=== PATIENT | female | born 1995 | race Hispanic/Latino ===

== ENCOUNTER 2019-07-22 19:09 | Emergency (ER) | payer MEDICAID ==
[2019-07-22 19:52] LABS: BASOPHILS % (AUTO) 0.4 % (0.0-5.0); EOSINOPHILS % (AUTO) 1.1 % (0.0-8.0); HEMATOCRIT 37.1 % (36-48); LYMPHOCYTES % (AUTO) 31.5 % (21.0-51.0); MEAN CORPUSCULAR HEMOGLOBIN 28.7 pg (27.0-33.0); MEAN CORPUSCULAR HGB CONC 33.4 g/dL (32.0-36.0); MEAN CORPUSCULAR VOLUME 85.9 fL (79-99); NEUTROPHILS % (AUTO) 59.6 % (40.0-77.0); PLATELET COUNT (AUTO) 253 K/uL (130-400); RED BLOOD CELL COUNT(AUTO) 4.32 MIL/uL (4.00-5.50); RED CELL DISTRIBUTION WIDTH 11.9 % (11.0-15.5); WHITE BLOOD COUNT (AUTO) 8.5 K/uL (4.8-10.8)
[2019-07-22 20:05] LABS: CREATININE 0.6 mg/dL (0.5-1.5); POTASSIUM 3.5 mmol/L (3.5-5.1)
[2019-07-22 20:17] LABS: ALBUMIN 3.4 g/dL (3.5-5.0); BILIRUBIN,TOTAL 0.4 mg/dL (0.2-1.0); TOTAL PROTEIN, SERUM 7.8 g/dL (6.0-8.3)
[2019-07-22 20:59] LABS: APPEARANCE,URINE Clear (CLEAR); BILIRUBIN,URINE Negative (NEGATIVE); COLOR,URINE Yellow (YELLOW); GLUCOSE, URINE (UA) Negative (NEGATIVE); KETONES,URINE Trace mg/dL (NEGATIVE); LEUKOCYTE ESTERASE ,URINE Trace (NEGATIVE); NITRATE,URINE Negative (NEGATIVE); OCCULT BLOOD,URINE Moderate (NEGATIVE); PH,URINE 5.5 (5.0-8.0); PROTEIN,URINE Negative (NEGATIVE)
[2019-07-22 21:28] LABS: BACTERIA,URINE Few /HPF (None Seen); CALCIUM OXALATE CRYSTALS,UR Moderate /LPF (None Seen); MUCUS,URINE Few LPF (None Seen); SQUAMOUS EPITHELIAL CELL,UR 0-2 /HPF (0-2)
[2019-07-22] MEDS ORDERED: ACETAMINOPHEN 325 MG TAB ONE (21:37)
== END 2019-07-22 21:44 | disposition home or self-care (01) ==
LOC: EDH 19:09
DX: O26.891 Other specified pregnancy related conditions, first trimester (principal); R10.12 Left upper quadrant pain; Z3A.10 10 weeks gestation of pregnancy
CPT/HCPCS: 36415; 76801; 80053; 81001; 83690; 85025

== ENCOUNTER 2020-02-03 06:01 | Inpatient (IN) | payer MEDICAID ==
[~2020-02-03] VITALS: Ht 160 cm; Wt 96.2 kg
[2020-02-03] MEDS ORDERED: LACTATED RINGERS 1000ML 1,000 ML IV PRN (06:20)
[2020-02-03] MEDS ORDERED: NALOXONE HCL 0.4 MG/1 ML ML IV PRN (06:30)
[2020-02-03] MEDS ORDERED: LACTATED RINGERS 500 ML 500 ML IV PRN (06:30)
[2020-02-03] MEDS ORDERED: OXYTOCIN 10 USP UNITS/ML 20 UNIT in LACTATED RINGERS 1000ML 1,000 ML IV SCH (06:30)
[2020-02-03] MEDS ORDERED: EPHEDRINE SULFATE 50 MG/ML AMPULE IVP PRN (06:30)
[2020-02-03] MEDS ORDERED: ROPIVACAINE 0.2% 100ML VIAL 100 ML EP SCH (06:30)
[2020-02-03 07:12] LABS: APPEARANCE,URINE Cloudy (CLEAR); BILIRUBIN,URINE Negative (NEGATIVE); COLOR,URINE Yellow (YELLOW); GLUCOSE, URINE (UA) Negative (NEGATIVE); KETONES,URINE Negative (NEGATIVE); LEUKOCYTE ESTERASE ,URINE Moderate (NEGATIVE); NITRATE,URINE Negative (NEGATIVE); OCCULT BLOOD,URINE Negative (NEGATIVE); PH,URINE 6.5 (5.0-8.0); PROTEIN,URINE POS 1+ mg/dL (NEGATIVE)
[2020-02-03] MEDS ORDERED: OXYTOCIN-LR 20 UNITS/1000 ML 1,000 ML IV ONE (07:12)
[2020-02-03 07:16] LABS: MEAN CORPUSCULAR HEMOGLOBIN 28.3 pg (27.0-33.0); MEAN CORPUSCULAR HGB CONC 32.7 g/dL (32.0-36.0); MEAN CORPUSCULAR VOLUME 86.4 fL (79-99); RED BLOOD CELL COUNT(AUTO) 4.28 MIL/uL (4.00-5.50); RED CELL DISTRIBUTION WIDTH 13.8 % (11.0-15.5); WHITE BLOOD COUNT (AUTO) 8.8 K/uL (4.8-10.8)
[2020-02-03] MEDS ORDERED: OXYTOCIN-LR 20 UNITS/1000 ML 1,000 ML IV SCH ×2 (07:45→13:00)
[2020-02-03 07:56] LABS: AMPHET/METH SCREEN,URINE NEGATIVE (NEGATIVE); BARBITURATE SCREEN, URINE NEGATIVE (NEGATIVE); BENZODIAZEPINES SCREEN,URINE NEGATIVE (NEGATIVE); CANNABINOID SCREEN,URINE NEGATIVE (NEGATIVE); COCAINE SCREEN,URINE NEGATIVE (NEGATIVE); OPIATE SCREEN,URINE NEGATIVE (NEGATIVE); PHENCYCLIDINE SCREEN,URINE NEGATIVE (NEGATIVE)
[2020-02-03 08:05] LABS: BACTERIA,URINE Few /HPF (None Seen); MUCUS,URINE Rare LPF (None Seen); RBC,URINE 0-1 /HPF (0-1); SQUAMOUS EPITHELIAL CELL,UR Few /HPF (0-2)
[2020-02-03] MEDS ORDERED: WITCH HAZEL 1 PAD TP PRN (13:00)
[2020-02-03] MEDS ORDERED: BENZOCAINE/LANOLIN/ALOE VERA 60 ML AEROSOL TP PRN (13:00)
[2020-02-03] MEDS ORDERED: LANOLIN 30GM OINTMENT TP PRN (13:00)
[2020-02-03] MEDS ORDERED: ACETAMINOPHEN-CODEINE 300/30MG TAB PO PRN (13:00)
[2020-02-03 15:36] VITALS: BP 132/80
[2020-02-03] MEDS: IBUPROFEN 600 MG TABLET PO PRN (19:02)
[2020-02-03 19:39] VITALS: BP 132/88
[2020-02-03] MEDS: DOCUSATE SODIUM 100 MG CAP PO SCH (21:14)
[2020-02-03 23:56] VITALS: BP 127/82
[2020-02-04 04:13] VITALS: BP 122/83
[2020-02-04 08:41] VITALS: BP 131/87
[2020-02-04] MEDS: DOCUSATE SODIUM 100 MG CAP PO SCH (08:45)
[2020-02-04] MEDS: IBUPROFEN 600 MG TABLET PO PRN (08:45)
[2020-02-04 11:11] LABS: HEPATITIS Bs ANTIGEN SCREEN P Negative (Negative)
[2020-02-04 12:00] VITALS: BP 126/79
== END 2020-02-04 13:40 | disposition home or self-care (01) | DRG 560 ==
LOC: LDH 06:01 → WSH 15:35
PROC: 10E0XZZ Delivery of Products of Conception, External Approach (ICD-10-PCS; principal; 2020-02-03)
PROC: 10907ZC Drainage of Amniotic Fluid, Therapeutic from Products of Conception, Via Natural or Artificial Opening (ICD-10-PCS; 2020-02-03)
PROC: 3E0S3BZ Introduction of Anesthetic Agent into Epidural Space, Percutaneous Approach (ICD-10-PCS; 2020-02-03)
PROC: 00HU33Z Insertion of Infusion Device into Spinal Canal, Percutaneous Approach (ICD-10-PCS; 2020-02-03)
DX: O77.0 Labor and delivery complicated by meconium in amniotic fluid (principal); Z37.0 Single live birth; Z82.49 Family history of ischemic heart disease and other diseases of the circulatory system; Z83.3 Family history of diabetes mellitus; Z3A.39 39 weeks gestation of pregnancy
CPT/HCPCS: 36415; 80305; 81001; 85027; 86592; 86850; 86900; 86901; 87088; 87340; A4314; G0378; J2590; J2795

== ENCOUNTER 2021-05-31 14:27 | Emergency (ER) | payer MEDICAID ==
[~2021-05-31] VITALS: Ht 160 cm; Wt 87.1 kg
[2021-05-31 14:45] LABS: APPEARANCE,URINE Clear (CLEAR); BILIRUBIN,URINE Negative (NEGATIVE); COLOR,URINE Yellow (YELLOW); GLUCOSE, URINE (UA) Negative (NEGATIVE); KETONES,URINE Negative (NEGATIVE); LEUKOCYTE ESTERASE ,URINE Trace (NEGATIVE); NITRATE,URINE Negative (NEGATIVE); OCCULT BLOOD,URINE Negative (NEGATIVE); PH,URINE 5.5 (5.0-8.0); PROTEIN,URINE Negative (NEGATIVE)
[2021-05-31 14:49] LABS: HCG,QUAL RESULT NEGATIVE (NEGATIVE)
[2021-05-31 14:50] LABS: RBC,URINE 0-1 /HPF (0-1)
[2021-05-31 14:51] LABS: BACTERIA,URINE Few /HPF (None Seen); CALCIUM OXALATE CRYSTALS,UR Rare /LPF (None Seen); MUCUS,URINE Rare LPF (None Seen); SQUAMOUS EPITHELIAL CELL,UR Few /HPF (0-2)
[2021-05-31] MEDS ORDERED: KETOROLAC 30MG VIAL (30MG/ML) IVP ONE (15:00)
[2021-05-31] MEDS ORDERED: ONDANSETRON 4MG INJ IVP ONE (15:00)
[2021-05-31 15:19] LABS: BASOPHILS % (AUTO) 0.4 % (0.0-5.0); EOSINOPHILS % (AUTO) 0.4 % (0.0-8.0); HEMATOCRIT 38.7 % (36-48); LYMPHOCYTES % (AUTO) 20.1 % (21.0-51.0); MEAN CORPUSCULAR HGB CONC 33.3 g/dL (32.0-36.0); NEUTROPHILS % (AUTO) 72.7 % (40.0-77.0); PLATELET COUNT (AUTO) 247 K/uL (130-400); RED BLOOD CELL COUNT(AUTO) 4.45 MIL/uL (4.00-5.50); WHITE BLOOD COUNT (AUTO) 9.3 K/uL (4.8-10.8)
[2021-05-31 15:35] LABS: CREATININE 0.6 mg/dL (0.5-1.5); POTASSIUM 3.8 mmol/L (3.5-5.1)
[2021-05-31 15:39] LABS: BILIRUBIN,TOTAL 0.8 mg/dL (0.2-1.0)
[2021-05-31] MEDS ORDERED: IBUP-2070 PO (17:29)
[2021-05-31 18:33] VITALS: BP 102/65
== END 2021-05-31 18:38 | disposition home or self-care (01) ==
LOC: EDH 14:27
DX: K80.20 Calculus of gallbladder without cholecystitis without obstruction (principal)
CPT/HCPCS: 36415; 76705; 80053; 81001; 81025; 82150; 83690; 85025; 93005; 96374; 96375; 99285; J1885; J2405

== ENCOUNTER 2022-01-12 04:30 | Emergency (ER) | payer MEDICAID ==
[~2022-01-12] VITALS: Ht 160 cm; Wt 89.4 kg
[~2022-01-12 04:30] MED LIST: IBUP-2070 PO
[2022-01-12 04:54] LABS: BASOPHILS % (AUTO) 0.3 % (0.0-5.0); HEMATOCRIT 37.6 % (36-48); LYMPHOCYTES % (AUTO) 27.6 % (21.0-51.0); MEAN CORPUSCULAR HEMOGLOBIN 29.4 pg (27.0-33.0); MEAN CORPUSCULAR HGB CONC 33.5 g/dL (32.0-36.0); MEAN CORPUSCULAR VOLUME 87.9 fL (79-99); MONOCYTES % (AUTO) 7.1 % (3.0-13.0); NEUTROPHILS % (AUTO) 63.4 % (40.0-77.0); PLATELET COUNT (AUTO) 266 K/uL (130-400); RED BLOOD CELL COUNT(AUTO) 4.28 MIL/uL (4.00-5.50); RED CELL DISTRIBUTION WIDTH 12.1 % (11.0-15.5); WHITE BLOOD COUNT (AUTO) 10.5 K/uL (4.8-10.8)
[2022-01-12 05:31] VITALS: BP 108/72
== END 2022-01-12 05:55 | disposition home or self-care (01) ==
LOC: EDH 04:30
DX: O20.0 Threatened abortion (principal); O26.891 Other specified pregnancy related conditions, first trimester; E28.2 Polycystic ovarian syndrome; Z3A.08 8 weeks gestation of pregnancy; Z79.1 Long term (current) use of non-steroidal anti-inflammatories (NSAID)
CPT/HCPCS: 36415; 76817; 84702; 85025

== ENCOUNTER 2022-08-24 12:40 | Emergency (ER) | payer MEDICAID ==
[~2022-08-24] VITALS: Ht 160 cm; Wt 83.9 kg
[2022-08-24 14:11] LABS: BASOPHILS % (AUTO) 0.7 % (0.0-5.0); LYMPHOCYTES % (AUTO) 35.6 % (21.0-51.0); MEAN CORPUSCULAR HGB CONC 31.6 g/dL (32.0-36.0); MEAN CORPUSCULAR VOLUME 85.4 fL (79-99); MONOCYTES % (AUTO) 8.7 % (3.0-13.0); PLATELET COUNT (AUTO) 344 K/uL (130-400); RED BLOOD CELL COUNT(AUTO) 3.63 MIL/uL (4.00-5.50); RED CELL DISTRIBUTION WIDTH 13.5 % (11.0-15.5); WHITE BLOOD COUNT (AUTO) 6.1 K/uL (4.8-10.8)
[2022-08-24 14:13] LABS: APPEARANCE,URINE CLEAR (CLEAR); BILIRUBIN,URINE NEGATIVE (NEGATIVE); COLOR,URINE LIGHT-YELLOW (YELLOW); GLUCOSE, URINE (UA) NEGATIVE (NEGATIVE); KETONES,URINE NEGATIVE (NEGATIVE); LEUKOCYTE ESTERASE ,URINE 250 Leu/uL (NEGATIVE); NITRATE,URINE NEGATIVE (NEGATIVE); OCCULT BLOOD,URINE MODERATE (NEGATIVE); PH,URINE 6.5 (5.0-8.0); PROTEIN,URINE NEGATIVE (NEGATIVE); UROBILINOGEN,URINE 0.2 mg/dL (0.2-1.0)
[2022-08-24 14:24] LABS: CREATININE 0.6 mg/dL (0.5-1.5); POTASSIUM 4.1 mmol/L (3.5-5.1)
[2022-08-24 14:29] LABS: TOTAL PROTEIN, SERUM 7.6 g/dL (6.0-8.3)
[2022-08-24 14:34] VITALS: BP 132/83
[2022-08-24 15:00] LABS: BACTERIA,URINE RARE /HPF (None Seen); MUCUS,URINE RARE LPF (None Seen); SQUAMOUS EPITHELIAL CELL,UR FEW /HPF (0-2); YEAST,URINE BUDDING RARE /HPF (None Seen)
[2022-08-24] MEDS ORDERED: CEPH500B PO (15:41)
== END 2022-08-24 15:52 | disposition home or self-care (01) ==
LOC: EDH 12:40
DX: N39.0 Urinary tract infection, site not specified (principal)
CPT/HCPCS: 36415; 80053; 81001; 85025; 87088